=== PATIENT | female | born 1940 | race African-American/Black ===

== ENCOUNTER 2017-07-09 07:20 | Inpatient (IN) | payer MEDICARE, OTHER ==
[~2017-07-09] VITALS: Ht 172.7 cm; Wt 73.7 kg
[2017-07-09 07:25] VITALS: BP 179/85; PULSE 86; RESP 14; TEMP 97.6; O2SAT 96
[2017-07-09] MEDS ORDERED: ASPI325T PO (08:31)
[2017-07-09] MEDS ORDERED: IBUP-232 PO (08:31)
[2017-07-09] MEDS ORDERED: AMLO10TA2 PO (08:31)
[2017-07-09] MEDS ORDERED: DIGO0.12 PO (08:31)
[2017-07-09] MEDS ORDERED: GLUC15009 PO (08:31)
[2017-07-09] MEDS ORDERED: [UNRECOGNIZED DRUG - CODE] (08:31)
[2017-07-09] MEDS ORDERED: SODIUM CHLORIDE 0.9% FLUSH 10 ML FLUSH IVF PRN (09:00)
--- NOTE | 2017-07-09 09:20 | RADRPT ---
EXAM DATE/TIME: 07/09/2017 09:04 [facility] COMPARISON: No previous studies available for comparison. INDICATIONS : Right arm numbness since last night. RADIATION DOSE: 31.94 CTDIvol (mGy) MEDICAL HISTORY : Hypertension. SURGICAL HISTORY : None. ENCOUNTER: Initial ACUITY: 1 day PAIN SCALE: 0/10 LOCATION: Bilateral head TECHNIQUE: Multiple contiguous axial images were obtained of the head. Using automated exposure control and adj ustment of the mA and/or kV according to patient size, radiation dose was kept as low as reasonably a chievable to obtain optimal diagnostic quality images. DICOM format image data is available electro nically for review and comparison. FINDINGS: CEREBRUM: Ventricles are normal. There is mild periventricular white matter low attenuation. 4 mm low density i s present in the left thalamus. No evidence of midline shift, mass lesion, hemorrhage or acute infar ction. No extra-axial fluid collections are seen. POSTERIOR FOSSA: The cerebellum and brainstem demonstrate no acute finding. The 4th ventricle is midline. The cerebe llopontine angle is unremarkable. EXTRACRANIAL: The visualized portion of the orbits is intact. SKULL: The calvaria is intact. No evidence of skull fracture. CONCLUSION: 1. No acute intracranial abnormality is identified. 2. Chronic changes include mild periventricular white matter changes characteristic of chronic small vessel ischemic change and old lacunae in left thalamus. Rhett Harmon MD on July 09, 2017 at 9:16 Board Certified Radiologist. This report was verified electronically.
--- NOTE | 2017-07-09 09:24 | RADRPT ---
EXAM DATE/TIME: 07/09/2017 09:07 [facility] COMPARISON: No previous studies available for comparison. INDICATIONS : Right hand numbness. MEDICAL HISTORY : Hypertension. Irregular heart beat. SURGICAL HISTORY : None. ENCOUNTER: Initial ACUITY: 2 days PAIN SCORE: 0/10 LOCATION: chest FINDINGS: A single view of the chest demonstrates the lungs to be symmetrically aerated without evidence of mas s, infiltrate or effusion. The cardiomediastinal contours are unremarkable. Osseous structures are intact. CONCLUSION: No acute disease. Harris Rios MD on July 09, 2017 at 9:22 Board Certified Radiologist. This report was verified electronically.
[2017-07-09 09:42] VITALS: RESP 18; O2SAT 97
[2017-07-09 09:55] LABS: AUTOMATED NEUTROPHIL # 6.2 TH/MM3 (1.8-7.7); BASOPHIL % 0.4 % (0.0-2.0); EOSINOPHIL # 0.2 TH/MM3 (0-0.4); EOSINOPHIL % 2.3 % (0.0-4.0); HEMO FLAGS DIFF FINAL; LYMPH % 28.6 % (9.0-44.0); LYMPHOCYTE # 2.9 TH/MM3 (1.0-4.8); MEAN CELL VOLUME 92.4 FL (80.0-100.0); MEAN CORPUSCULAR HEMOGLOBIN 31.1 PG (27.0-34.0); MEAN CORPUSCULAR HGB CONC 33.7 % (32.0-36.0); MONO % 6.9 % (0.0-8.0); NEUT % 61.8 % (16.0-70.0); PLATELET COUNT 277 TH/MM3 (150-450); RED BLOOD COUNT 4.22 MIL/MM3 (4.00-5.30); RED CELL DISTRIBUTION WIDTH 14.3 % (11.6-17.2)
[2017-07-09 10:11] LABS: BACTERIA, URINE RARE /hpf; BLOOD, URINE NEG (NEG); GLUCOSE,URINE NEG (NEG); KETONE, URINE NEG (NEG); NITRITE,URINE NEG (NEG); PH, URINE 6.5 (5.0-8.5)
[2017-07-09 10:17] LABS: ANION GAP 10 MEQ/L (5-15); BICARBONATE 24.3 MEQ/L (21.0-32.0); BLOOD UREA NITROGEN 21 MG/DL (7-18); CHLORIDE 107 MEQ/L (98-107); COMMENT (UR) CATH-CULTURE IND; CULTURE IF INDICATED CATH CULTURE IND; GLOMERULAR FILTRATION RATE 98 ML/MIN (>89); SODIUM (NA) 141 MEQ/L (136-145); URINE COLOR STRAW (YELLW/STRAW)
[2017-07-09 10:23] LABS: POTASSIUM 3.8 MEQ/L (3.5-5.1)
[2017-07-09] MEDS ORDERED: NITROFURANTOIN MONOHYD MACROCR 100 MG CAP PO ONE (10:30)
--- NOTE | 2017-07-09 10:32 | PD ---
HPI Chief Complaint: Neuro Symptoms/ Deficits Time Seen by Provider: 08:40 Travel History International Travel<30 days: No Contact w/Intl Traveler<30days: No Traveled to known affect area: No History of Present Illness HPI 77-year-old female came to the emergency room since she has weakness of her right upper extremity. Patient says that she noticed this at 10 PM last night. When she got out of work and was driving her car she noticed that her right arm was weak. She was trying to compensate with her left arm. When she tried to get out of the car she could not hold the car keys in her hand. It slipped and fell. She had to retrieve it with her left arm again. She did not call for any help or asked anybody in the household to bring her to the emergency room sheet since she did not want to bother anybody. This morning when she woke up she noticed that the weakness still persisted and may have been a little worse than last night. No history of speech problem. No history of weakness of her legs since last night. Vital signs are stable. She is awake and answering questions appropriately. Patient has not had these symptoms in the past. She was concerned if she is having a stroke. Patient is on digoxin for atrial fibrillation. She is not on any blood thinners. [facility] Past Medical History Narrative Medical List of her past medical, surgical, social and family history is reviewed from the nursing note. Asthma: No Autoimmune Disease: No Heart Rhythm Problems: Yes COPD: No Diabetes: No Endocrine: No Hypertension: Yes Respiratory: No Sleep Apnea: No Thyroid Disease: No Tetanus Vaccination: > 5 Years ?: Not Social History Alcohol Use: No Tobacco Use: No Substance Use: No Allergies-Medications (Allergen,Severity, Reaction): Coded Allergies: No Known Allergies (Verified Allergy, Severe, NO REACTION, 03/08/05) Comments No known drug allergies. Reported Meds & Prescriptions Reported Meds & Active Scripts Active Reported Aspirin 325 Mg Tab 325 Mg PO DAILY Biotin 10,000 Mcg Tab.rapdis Digoxin 0.125 Mg Tab 0.125 Mg PO DAILY Amlodipine (Amlodipine Besylate) 10 Mg Tab 10 Mg PO DAILY Ibuprofen 600 Mg Tab 600 Mg PO Q8H PRN Glucosamine 1,500 Mg Tab 1,500 Mg PO DAILY Narrative Medication List of her home medications reviewed from the nursing note. Review of Systems Except as stated in HPI: all other systems reviewed are Neg Neurologic: Positive: Weakness, Focal Abnormalities Physical Exam Narrative GENERAL: Awake, alert, no obvious distress SKIN: Focused skin assessment warm/dry. HEAD: Atraumatic. Normocephalic. EYES: Pupils equal and round. No scleral icterus. No injection or drainage. ENT: No nasal bleeding or discharge. Mucous membranes pink and moist. NECK: Trachea midline. No JVD. CARDIOVASCULAR: Regular rate and rhythm. No murmur appreciated. RESPIRATORY: No accessory muscle use. Clear to auscultation. Breath sounds equal bilaterally. GASTROINTESTINAL: Abdomen soft, non-tender, nondistended. Hepatic and splenic margins not palpable. MUSCULOSKELETAL: No obvious deformities. No clubbing. No cyanosis. No edema. NEUROLOGICAL: Awake and alert. No obvious cranial nerve deficits. Motor grossly within normal limits. Normal speech. Strength of right upper extremity is 3 out of 5. NIH stroke score of 1 PSYCHIATRIC: Appropriate mood and affect; insight and judgment normal. Data Data Last Documented VS Vital Signs Date Time Temp Pulse Resp B/P (MAP) Pulse Ox O2 Delivery O2 Flow Rate FiO2 07/09/17 09:42 18 97 Room Air 07/09/17 07:57 84 07/09/17 07:25 97.6 Orders Orders Electrocardiogram (07/09/17 08:46) Prothrombin Time / Inr (Pt) (07/09/17 08:46) Complete Blood Count With Diff (07/09/17 08:46) Basic Metabolic Panel (Bmp) (07/09/17 08:46) Troponin I (07/09/17 08:46) Urinalysis - C+S If Indicated (07/09/17 08:46) Ct Brain W/O Iv Contrast(Rout) (07/09/17 08:46) Chest, Single Ap (07/09/17 08:46) Ecg Monitoring (07/09/17 08:46) Iv Access Insert/Monitor (07/09/17 08:46) Oximetry (07/09/17 08:46) Sodium Chloride 0.9% Flush (Ns Flush) (07/09/17 09:00) Digoxin (07/09/17 08:46) Mra Brain W/O Contrast (Cow) (07/09/17 ) Mri Brain W/O Contrast (07/09/17 ) Urine Culture (07/09/17 09:17) Nitrofurantoin Monohyd Macrocr (Macrobid (07/09/17 10:30) Labs Laboratory Tests Test 07/09/17 09:17 White Blood Count 10.0 TH/MM3 Red Blood Count 4.22 MIL/MM3 Hemoglobin 13.1 GM/DL Hematocrit 39.0 % Mean Corpuscular Volume 92.4 FL Mean Corpuscular Hemoglobin 31.1 PG Mean Corpuscular Hemoglobin Concent 33.7 % Red Cell Distribution Width 14.3 % Platelet Count 277 TH/MM3 Mean Platelet Volume 9.6 FL Neutrophils (%) (Auto) 61.8 % Lymphocytes (%) (Auto) 28.6 % Monocytes (%) (Auto) 6.9 % Eosinophils (%) (Auto) 2.3 % Basophils (%) (Auto) 0.4 % Neutrophils # (Auto) 6.2 TH/MM3 Lymphocytes # (Auto) 2.9 TH/MM3 Monocytes # (Auto) 0.7 TH/MM3 Eosinophils # (Auto) 0.2 TH/MM3 Basophils # (Auto) 0.0 TH/MM3 CBC Comment DIFF FINAL Differential Comment Urine Color STRAW Urine Turbidity CLEAR Urine pH 6.5 Urine Specific [place] 1.003 Urine Protein NEG mg/dL Urine Glucose (UA) NEG mg/dL Urine Ketones NEG mg/dL Urine Occult Blood NEG Urine Nitrite NEG Urine Bilirubin NEG Urine Urobilinogen LESS THAN 2.0 MG/DL Urine Leukocyte Esterase NEG Urine RBC LESS THAN 1 /hpf Urine Bacteria RARE /hpf Microscopic Urinalysis Comment CATH-CULTURE IND Blood Urea Nitrogen 21 MG/DL Creatinine 0.70 MG/DL Random Glucose 91 MG/DL Calcium Level 9.5 MG/DL Sodium Level 141 MEQ/L Potassium Level 3.8 MEQ/L Chloride Level 107 MEQ/L Carbon Dioxide Level 24.3 MEQ/L Anion Gap 10 MEQ/L Estimat Glomerular Filtration Rate 98 ML/MIN Troponin I LESS THAN 0.02 NG/ML Digoxin Level 0.5 NG/ML MDM Medical Decision Making Medical Screen Exam Complete: Yes Emergency Medical Condition: Yes Medical Record Reviewed: Yes Interpretation(s) Twelve-lead EKG is reviewed by me. Normal sinus rhythm, left axis deviation, poor R-wave progression, nonspecific ST-T wave changes. Heart rate of 78 bpm. Differential Diagnosis CVA, cervical radiculopathy, muscular weakness Narrative Course 10:31 AM blood test results of back and within acceptable limit. CT scan does not show any bleed. I've ordered MRI of her brain. I would like to admit this patient. I'll give her one aspirin. Awaiting for hospitalist to call back. 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
[2017-07-09 10:33] LABS: DIGOXIN 0.5 NG/ML (0.8-2.0)
[2017-07-09] MEDS ORDERED: SODIUM CHLOR 0.9% 1000 ML INJ 1,000 ML IV ONE (10:45)
[2017-07-09] MEDS ORDERED: ASPIRIN 325 MG TAB PO ONE (11:30)
--- NOTE | 2017-07-09 11:51 | RADRPT ---
EXAM DATE/TIME: 07/09/2017 11:14 [facility] COMPARISON: CT BRAIN W/O CONTRAST, July 09, 2017, 9:04. INDICATIONS : Right sided weakness. MEDICAL HISTORY : Hypertension. SURGICAL HISTORY : Hysterectomy. Knee replacement. ENCOUNTER: Initial ACUITY: 2 day PAIN SCORE: 0/10 LOCATION: Head TECHNIQUE: Multiplanar, multisequence MRI of the brain was performed without contrast. FINDINGS: CEREBRUM: There is mild generalized atrophy. Ventricles are normal. No evidence of midline shift, mass lesion, or hemorrhage. No extraaxial fluid collections are seen. The pituitary gland and suprasellar ciste rn are normal in configuration. WHITE MATTER: There is mild mild periventricular white matter signal change. There a few punctate areas of low sign al change in the left basal ganglia and left centrum semiovale. POSTERIOR FOSSA: The cerebellum and brainstem demonstrate no acute finding. There is an old lacune in the left cerebel lum. The 4th ventricle is midline. The cerebellopontine angle is unremarkable. The cerebellar tonsi ls are normal in position. DIFFUSION IMAGING: There is a single small focal area of restricted diffusion in the left parietal high convexity that a ppears to be adjacent to the central sulcus. There is a minimal flair signal change in this area. EXTRACRANIAL: The visualized portions of the orbits and paranasal sinuses are unremarkable. CONCLUSION: 1. Small focal area of recent ischemia in the left parietal high convexity. 2. Chronic changes include mild atrophy and periventricular white matter changes characteristic of ch ronic microvascular ischemia. Rhett Harmon MD on July 09, 2017 at 11:45 Board Certified Radiologist. This report was verified electronically.
[2017-07-09] MEDS ORDERED: SODIUM CHLORIDE 0.9% FLUSH 5 ML FLUSH IV FLUSH PRN (12:00)
[2017-07-09] MEDS ORDERED: ENALAPRILAT 1.25 MG/ML VIAL IV PUSH PRN (12:00)
--- NOTE | 2017-07-09 12:03 | RADRPT ---
EXAM DATE/TIME: 07/09/2017 11:14 [facility] COMPARISON: CT BRAIN W/O CONTRAST, July 09, 2017, 9:04. MRI BRAIN W/O CONTRAST, July 09, 2017, 11:14. INDICATIONS : Right sided weakness. MEDICAL HISTORY : Hypertension. SURGICAL HISTORY : Hysterectomy. Knee replacement. ENCOUNTER: Initial ACUITY: 2 day PAIN SCORE: 0/10 LOCATION: head Please note a normal MRA of the brain does not entirely exclude the possibility of a small aneurysm, nor the possibility of distal intracranial vessel disease. TECHNIQUE: 3D time of flight MRA was performed. Source images, multiplanar STS MIP, and 3D volume MIP reconstru ctions were reviewed. FINDINGS: There is excellent visualization of the major intracranial arteries out to the second-order branch ve ssels. Diffuse atherosclerotic plaque observed. The most significant stenosis involves the M1 segment on the right with a high grade stenosis identified. There is mild luminal narrowing involving the P1 segments bilaterally as well as the basilar artery near its bifurcation into the P1 segments. Athero sclerotic plaque within the intracavernous segments of the ICAs without luminal narrowing. There is n o evidence for aneurysm or vascular malformation. CONCLUSION: 1. 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 Justin Jauregui Jr., MD on July 09, 2017 at 11:58 Board Certified Radiologist. This report was verified electronically.
[2017-07-09 12:14] LABS: PROTHROMBIN TIME - PATIENT 10.6 SEC (9.8-11.6)
[2017-07-09] MEDS ORDERED: ENOXAPARIN SODIUM 40 MG/0.4 ML SYRINGE SQ SCH (13:00)
[2017-07-09] MEDS ORDERED: SODIUM CHLOR 0.9% 1000 ML INJ 1,000 ML IV SCH (13:00)
--- NOTE | 2017-07-09 13:00 | HHI.HP ---
HPI Service [facility] Hospitalists Primary Care Physician Michi Austin M.D. Admission Diagnosis CVA, Monoplegia Diagnoses: Chief Complaint: Right upper extremity weakness Travel History International Travel<30 Days: No Contact w/Intl Traveler <30 Da: No Traveled to Known Affected Are: No History of Present Illness Written by Daisha Nichols, acting as scribe for Dr. Bowie on 07/09/17 at 12: 59. This 77-year-old female with past medical history significant for hypertension and atrial fibrillation who presents to [facility] ED with complaints of right upper extremity weakness 2 days. She states she was driving home from work around 10 PM last night when she developed sudden onset of right upper extremity weakness and had difficulty holding onto objects with the right hand. Patient states when she woke up this morning she continued to have the weakness in the right upper extremity at that time decided to come into the emergency department for evaluation treatment. Patient takes digoxin daily for atrial fibrillation and states she is compliant with her medications including 325mg aspirin daily. She's never been on blood thinners. In the ED, CT of the head was obtained which showed no acute intracranial abnormality. MRI of the brain showed small focal area of recent ischemia the left parietal high convexity. She does admit that she has a bit more movement in the right hand than she did last night. She denies any complaints of pain in the right upper extremity. She denies any weakness in the lower extremities. Review of Systems Except as stated in HPI: all other systems reviewed are Neg Past Family Social History Past Medical History Hypertension Atrial fibrillation Past Surgical History Hysterectomy Left total knee replacement Reported Medications Current Medications Medications (Trade) Dose Ordered Sig/Sukh Route Start Time Stop Time Status Last Admin (NS Flush) 2 ml UNSCH PRN IVF 07/09/17 09:00 (Norvasc) 10 mg DAILY PO 07/10/17 09:00 (Aspirin) 325 mg DAILY PO 07/10/17 09:00 (Lanoxin) 0.125 mg DAILY PO 07/10/17 09:00 (NS Flush) 2 ml BID IV FLUSH 07/09/17 21:00 (NS Flush) 2 ml UNSCH PRN IV FLUSH 07/09/17 12:00 Sodium Chloride 1,000 ml @ 70 mls/hr [id number] IV 07/09/17 13:00 (Vasotec Inj) 1.25 mg Q4H PRN IV PUSH 07/09/17 12:00 (Lovenox Inj) 40 mg Q24H SQ 07/09/17 13:00 Allergies: Coded Allergies: No Known Allergies (Verified Allergy, Severe, NO REACTION, 03/08/05) Active Ordered Medications Aspirin 325 Mg Tab 325 Mg PO DAILY Biotin 10,000 Mcg Tab.rapdis Digoxin 0.125 Mg Tab 0.125 Mg PO DAILY Amlodipine (Amlodipine Besylate) 10 Mg Tab 10 Mg PO DAILY Ibuprofen 600 Mg Tab 600 Mg PO Q8H PRN Glucosamine 1,500 Mg Tab 1,500 Mg PO DAILY Family History Patient reports family medical history significant for hypertension, CVA and kidney disease. Social History Patient denies any tobacco use and has been a lifelong nonsmoker. She denies any alcohol consumption or illicit drug use. She currently works at [employer]. Physical Exam Vital Signs Vital Signs Date Time Temp Pulse Resp B/P (MAP) Pulse Ox O2 Delivery O2 Flow Rate FiO2 07/09/17 09:42 18 97 Room Air 07/09/17 07:57 84 07/09/17 07:25 97.6 86 14 179/85 (116) 96 Physical Exam GENERAL: This is a well-nourished, well-developed AAF patient, in no apparent distress. Awake and alert. No facial asymmetry appreciated. SKIN: No rashes, ecchymoses or lesions. Cool and dry. HEAD: Atraumatic. Normocephalic. No temporal or scalp tenderness. EYES: Pupils equal round and reactive. Extraocular motions intact. No scleral icterus. No injection or drainage. ENT: Nose without bleeding, purulent drainage or septal hematoma. Throat without erythema, tonsillar hypertrophy or exudate. Uvula midline. Airway patent. NECK: Trachea midline. No JVD or lymphadenopathy. Supple, nontender, no meningeal signs. CARDIOVASCULAR: Regular rate and rhythm without murmurs, gallops, or rubs. RESPIRATORY: Clear to auscultation. Breath sounds equal bilaterally. No wheezes , rales, or rhonchi. GASTROINTESTINAL: Abdomen soft, non-tender, nondistended. No hepato-splenomegaly , or palpable masses. No guarding. MUSCULOSKELETAL: Extremities without clubbing, cyanosis, or edema. No joint tenderness, effusion, or edema noted. No calf tenderness. NEUROLOGICAL: Awake and alert. Able to move all extremities. 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 Sensory function grossly intact. Left upper extremity and bilateral lower extremities with intact motor and sensory functions. Normal speech. Laboratory Laboratory Tests Test 07/09/17 09:17 07/09/17 11:44 White Blood Count 10.0 Red Blood Count 4.22 Hemoglobin 13.1 Hematocrit 39.0 Mean Corpuscular Volume 92.4 Mean Corpuscular Hemoglobin 31.1 Mean Corpuscular Hemoglobin Concent 33.7 Red Cell Distribution Width 14.3 Platelet Count 277 Mean Platelet Volume 9.6 Neutrophils (%) (Auto) 61.8 Lymphocytes (%) (Auto) 28.6 Monocytes (%) (Auto) 6.9 Eosinophils (%) (Auto) 2.3 Basophils (%) (Auto) 0.4 Neutrophils # (Auto) 6.2 Lymphocytes # (Auto) 2.9 Monocytes # (Auto) 0.7 Eosinophils # (Auto) 0.2 Basophils # (Auto) 0.0 CBC Comment DIFF FINAL Differential Comment Urine Color STRAW Urine Turbidity CLEAR Urine pH 6.5 Urine Specific [place] 1.003 Urine Protein NEG Urine Glucose (UA) NEG Urine Ketones NEG Urine Occult Blood NEG Urine Nitrite NEG Urine Bilirubin NEG Urine Urobilinogen LESS THAN 2.0 Urine Leukocyte Esterase NEG Urine RBC LESS THAN 1 Urine Bacteria RARE Microscopic Urinalysis Comment CATH-CULTURE IND Blood Urea Nitrogen 21 Creatinine 0.70 Random Glucose 91 Calcium Level 9.5 Sodium Level 141 Potassium Level 3.8 Chloride Level 107 Carbon Dioxide Level 24.3 Anion Gap 10 Estimat Glomerular Filtration Rate 98 Troponin I LESS THAN 0.02 Digoxin Level 0.5 Prothrombin Time 10.6 Prothromb Time International Ratio 1.0 Date/Time Source Procedure Growth Status 07/09/17 09:17 Urine Catheterized Urine Urine Culture Pending Received Result Diagram: 07/09/1791607/09/17916 Imaging Last Impressions Head CT 07/09/17 0846 Signed Impressions: Service Date/Time: Sunday, July 09, 2017 09:04 - CONCLUSION: 1. No acute intracranial abnormality is identified. 2. Chronic changes include mild periventricular white matter changes characteristic of chronic small vessel ischemic change and old lacunae in left thalamus. Rhett Harmon MD Chest X-Ray 07/09/17 0846 Signed Impressions: Service Date/Time: Sunday, July 09, 2017 09:07 - CONCLUSION: No acute disease. Harris Rios MD Head Magnetic Resonance Angiography 07/09/17 0000 Signed Impressions: Service Date/Time: Sunday, July 09, 2017 11:14 - CONCLUSION: 1. 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 Justin Jauregui Jr., MD Brain MRI 07/09/17 0000 Signed Impressions: Service Date/Time: Sunday, July 09, 2017 11:14 - CONCLUSION: 1. Small focal area of recent ischemia in the left parietal high convexity. 2. Chronic changes include mild atrophy and periventricular white matter changes characteristic of chronic microvascular ischemia. MD Floyd Acuña VTE Risk Assessment Caprini VTE Risk Assessment: Mod/High Risk (score >= 2) Caprini Risk Assessment Model Point Value = 1 Point Value = 2 Point Value = 3 Point Value = 5 Age 41-60 Minor surgery BMI > 25 kg/m2 Swollen legs Varicose veins or History of unexplained or recurrent spontaneous Oral contraceptives or hormone replacement Sepsis (< 1 month) Serious lung disease, including pneumonia (< 1 month) Abnormal pulmonary function Acute myocardial infarction Congestive heart failure (< 1 month) History of inflammatory bowel disease Medical patient at bed rest Age 61-74 Arthroscopic surgery Major open surgery (> 45 min) Laparoscopic surgery (> 45 min) Malignancy Confined to bed (> 72 hours) Immobilizing plaster cast Central venous access Age >= 75 History of VTE Family history of VTE Factor V Leiden Prothrombin [id number] Lupus anticoagulant Anticardiolipin antibodies Elevated serum homocysteine Heparin-induced thrombocytopenia Other congenital or acquired thrombophilia Stroke (< 1 month) Elective arthroplasty Hip, pelvis, or leg fracture Acute spinal cord injury (< 1 month) Prophylaxis Regimen Total Risk Factor Score Risk Level Prophylaxis Regimen 0-1 Low Early ambulation 2 Moderate Order ONE of the following: *Sequential Compression Device (SCD) *Heparin 5000 units SQ BID 3-4 Higher Order ONE of the following medications: *Heparin 5000 units SQ TID *Enoxaparin/Lovenox 40 mg SQ daily (WT < 150 kg, CrCl > 30 mL/min) *Enoxaparin/Lovenox 30 mg SQ daily (WT < 150 kg, CrCl > 10-29 mL/min) *Enoxaparin/Lovenox 30 mg SQ BID (WT < 150 kg, CrCl > 30 mL/min) AND/OR *Sequential Compression Device (SCD) 5 or more Highest Order ONE of the following medications: *Heparin 5000 units SQ TID (Preferred with Epidurals) *Enoxaparin/Lovenox 40 mg SQ daily (WT < 150 kg, CrCl > 30 mL/min) *Enoxaparin/Lovenox 30 mg SQ daily (WT < 150 kg, CrCl > 10-29 mL/min) *Enoxaparin/Lovenox 30 mg SQ BID (WT < 150 kg, CrCl > 30 mL/min) AND *Sequential Compression Device (SCD) Assessment and Plan Assessment and Plan 77-year-old female with past medical history significant for hypertension and atrial fibrillation who presents to [facility] ED with complaints of right upper extremity weakness 2 days with MRI of the brain showed small focal area of recent ischemia the left parietal. Left sided ischemic CVA with RUE paresis - MRI of the brain personally reviewed shows a small focal area of recent ischemia in the left parietal high convexity as well as chronic white matter changes characteristic of microvascular ischemia. - Patient given aspirin in the ED. We'll continue aspirin 325mg daily. - Consult neurology for anticoagulant recommendations - Neuro checks every 4 hours - PT/OT eval/treatment - Ultrasound carotid arteries ordered - 2-D echocardiogram - Obtain a hemoglobin A1c and a lipid profile - Continuous cardiac monitoring - Consult Rehab medicine Hypertension - Resume patient's home dose of amlodipine 10 mg daily - monitor BP Atrial fibrillation - Rate controlled - Resume patient's home dose of digoxin 0.125 mg daily - Monitor DVT prophylaxis - Lovenox sq This note was transcribed by april [Daisha Nichols]. I, Dr. Keara Bowie personally performed the history, physical exam, and medical decision making; and confirmed the accuracy of the information in the transcribed note. Authenticated by Dr. Keara Bowie on 07/09/17 at 1305. Discussed Condition With Patient, ED physician Physician Certification 2 Midnight Certification Type: Admission for Inpatient Services Order for Inpatient Services The services are ordered in accordance with Medicare regulations or non- Medicare payer requirements, as applicable. In the case of services not specified as inpatient-only, they are appropriately provided as inpatient services in accordance with the 2-midnight benchmark. Estimated LOS (days): 3 3 days is the estimated time the patient will need to remain in the hospital, assuming treatment plan goals are met and no additional complications. Post-Hospital Plan: Not yet determined Daisha Nichols Jul 09, 2017 13:00 Keara Bowie MD Jul 09, 2017 14:51
[2017-07-09] MEDS ORDERED: CLOPIDOGREL 75 MG TAB PO SCH (13:58)
[2017-07-09] MEDS ORDERED: GADODIAMIDE PF 287 MG/ML 20 ML VIAL (for RAD MRI) IV PUSH ONE (14:14)
[2017-07-09] MEDS: SODIUM CHLOR 0.9% 1000 ML INJ 1,000 ML IV SCH (15:10)
--- NOTE | 2017-07-09 15:53 | RADRPT ---
EXAM DATE/TIME: 07/09/2017 13:55 [facility] COMPARISON: MRA BRAIN W/O CONTRAST, July 09, 2017, 11:14. INDICATIONS : Stroke. CONTRAST: 20 cc Omniscan (gadodiamide) IV MEDICAL HISTORY : Hypertension. SURGICAL HISTORY : Hysterectomy. Knee replacement. ENCOUNTER: Initial ACUITY: 2 day PAIN SCORE: 0/10 LOCATION: neck Percent stenosis is calculated using the diameter of the stenotic region over the diameter of the nor mal distal internal carotid artery. TECHNIQUE: Bolus infused MRA of the extracranial circulation was performed using a neurovascular coil. Post pro cessing was performed including rotating subvolume maximum intensity projections of each carotid grace ry, rotating full volume maximum intensity projections of both carotid arteries, sagittal and coronal sliding thin slab reformations of each carotid artery, and left oblique sliding thin slab reformatio n through the aortic arch to include the origin of the arch branch vessels. FINDINGS: AORTIC ARCH: There is a three vessel origin of the great vessels from the aorta. No evidence of ostial narrowing. RIGHT CAROTID: The common carotid artery is intact. The carotid bulb has a normal configuration without ulceration or narrowing. The internal carotid artery lumen is smooth without stenosis. The external carotid ar jose manuel is intact. LEFT CAROTID: The common carotid artery is intact. The carotid bulb has a normal configuration without ulceration or narrowing. The internal carotid artery lumen is smooth without stenosis. The external carotid ar jose manuel is intact. VERTEBRALS: The vertebral arteries have a symmetric diameter. The origins of the vertebrals are not well visualiz ed. CONCLUSION: 1. No hemodynamically significant carotid artery stenosis identified. 2. The vertebral circulation appears patent. The vertebral origins are not well-visualized. Kaden Kim MD on July 09, 2017 at 15:50 Board Certified Radiologist. This report was verified electronically.
[2017-07-09 16:25] LABS: HEMOGLOBIN A1a 1.1 %; HEMOGLOBIN Ao 84.2 %; HEMOGLOBIN P3 4.1 %
[2017-07-09 16:27] VITALS: BP 176/81; PULSE 68; RESP 18; TEMP 97.2; O2SAT 95
[2017-07-09 20:00] VITALS: BP 151/79; PULSE 67; RESP 18; TEMP 98.2; O2SAT 97
[2017-07-09] MEDS: SODIUM CHLORIDE 0.9% FLUSH 5 ML FLUSH IV FLUSH SCH (21:00)
[2017-07-09] MEDS ORDERED: ENOXAPARIN SODIUM 30 MG/0.3 ML SYRINGE SQ SCH (21:00)
--- NOTE | 2017-07-09 21:41 | EKG ---
Date Performed: 07/09/2017 Time Performed: 08:55:08 PTAGE: 77 years EKG: Sinus rhythm WITH SINUS ARRHYTHMIA POSSIBLE LEFT ATRIAL ENLARGEMENT BORDERLINE ECG PREVIOUS TRACING : 04/30/2012 12.49 Compared to prior tracing no significant change DOCTOR: Rito Person Interpretating Date/Time 07/09/2017 21:40:17
--- NOTE | 2017-07-09 21:56 | MB ---
cc: LILLY MEJIA M.D. DATE OF CONSULTATION 07/09/2017 HISTORY A 77-year-old right-handed woman with a history of hypertension who was taking a baby aspirin a day. She usually sees Dr. Austin. She had been on digoxin although she did not know she ever had any atrial fibrillation. She was driving yesterday and had sudden onset of weakness of the right arm and it seemed to get a bit worse. The leg and face was not involved. No chest pain, although she used to have palpitations, none recently. She came in the ER. She has been taking a baby aspirin a day. Evidently she has been on digoxin. ALLERGIES NO KNOWN DRUG ALLERGIES. 1. She has been on aspirin 81. 2. Biotin. 3. Digoxin. 4. Amlodipine. 5. Ibuprofen. 6. Glucosamine. It states in the ER notes she has been on digoxin for A fib and reiterated in the primary care's note that she has a history of atrial fibrillation, although she herself never knew that. REVIEW OF SYSTEMS She denies any headache, diabetes, hypercholesterolemia, anemia, DC, CABG, stent angioplasty, Coumadin, renal, hepatic, pulmonary disease, thyroid disease, lupus, ulcer, cancer, seizure, prior stroke. SOCIAL HISTORY Not a smoker or a drinker. Lives alone. FAMILY HISTORY Positive for cancer. Negative for seizure. Positive for stroke. PHYSICAL EXAMINATION VITAL SIGNS: On exam afebrile, 60, 18, 176/81. Tele has been sinus rhythm. EKG today sinus rhythm, possible left atrial enlargement. NECK: There are no carotid bruits. HEART: Regular rhythm. I did not detect a murmur. NEUROLOGIC: Pupils are equal. Visual rodriguez are full. Extraocular intact without nystagmus. Face is symmetric with normal sensation. Tongue was midline. There is a positive right drift. She had normal strength in left upper and bilateral lower extremities. Right upper extremity triceps was about 4/5. Finger extensors 4-/5, inspector ball points 4-/5. Pinprick was intact throughout however. She is unsteady on [id number] on the right. Speech is fluent. She is not aphasic. LABORATORY DATA CBC is normal. ELOINA was 1:80 in the past. Digoxin 0.5. Basic metabolic profile normal. Troponin negative. Coags normal. IMAGING Chest x-ray negative. MRI of the brain shows small acute left parietal cortical to subcortical infarct. MRA [place] shows some right MCA disease, significant. MRA of the neck was normal. IMPRESSION Atrial fibrillation with a new stroke. I would stop the Lovenox, aspirin and Plavix and started her on Eliquis at 04:00 a.m. this morning it will be about 13 hours after her Lovenox dose. This will also cover her right MCA stenosis. An echocardiogram has been ordered. Check an LDL on her. Stop her aspirin and her Plavix. So we should above all things verify that she does in fact have a history of A fib, as we are starting her on the Eliquis due to that. Also check her LDL. And her echo is pending. MD DAY Santana/KK /5:36 PM /9:45 PM
[2017-07-10] VITALS: BP 142/71; PULSE 68; RESP 18; TEMP 98.7; O2SAT 98
[2017-07-10 04:00] VITALS: BP 124/69; PULSE 68; RESP 18; TEMP 98.7; O2SAT 98
[2017-07-10] MEDS: APIXABAN 5 MG TABLET PO SCH ×2 (04:06→16:47)
[2017-07-10] MEDS: SODIUM CHLOR 0.9% 1000 ML INJ 1,000 ML IV SCH ×2 (04:40→23:17)
[2017-07-10 07:48] LABS: HDL CHOLESTEROL 51.9 MG/DL (40.0-60.0)
--- NOTE | 2017-07-10 07:57 | HHI.PR ---
Objective Vital Signs Date Time Temp Pulse Resp B/P (MAP) Pulse Ox O2 Delivery O2 Flow Rate FiO2 07/10/17 04:00 98.7 68 18 124/69 (87) 98 07/10/17 00:00 98.7 68 18 142/71 (94) 98 07/09/17 20:00 98.2 67 18 151/79 (103) 97 07/09/17 16:27 97.2 68 18 176/81 (112) 95 07/09/17 15:35 07/09/17 09:42 18 97 Room Air 07/09/17 07:57 84 I/O 07/09/17 07/09/17 07/09/17 07/10/17 07/10/17 07/10/17 07:00 15:00 23:00 07:00 15:00 23:00 Intake Total 758 ml Balance 758 ml Intake Oral 240 ml IV Total 518 ml # Voids 3 2 # Bowel Movements 0 Result Diagram: 07/09/1791607/09/17916 Objective Remarks some r should er pain vff faxce sym rue a little better 4/5-4-/5 can make fist rle 4+ nl speech Assessment and Plan Assessment and Plan imp doing well afib hx? on eliquis ldl nl esr labs ok could go to rehab r mca stenosis asx Vasu Mercado MD Jul 10, 2017 07:56
[2017-07-10 08:00] VITALS: BP 141/69; PULSE 69; RESP 18; TEMP 98.4; O2SAT 98
[2017-07-10] MEDS: SODIUM CHLORIDE 0.9% FLUSH 5 ML FLUSH IV FLUSH SCH ×2 (09:00→21:00)
[2017-07-10] MEDS ORDERED: ASPIRIN 325 MG TAB PO SCH (09:00)
[2017-07-10] MEDS: DIGOXIN 0.125 MG TAB PO SCH (09:30)
[2017-07-10] MEDS ORDERED: PNEUMOCOCCAL POLYVALENT INJ 25 MCG/0.5 ML SYR IM ONE (10:00)
[2017-07-10 12:00] VITALS: BP_SYST 128; BP_SYST 135; BP_DIAS 59; BP_DIAS 73; PULSE 75; PULSE 85; RESP 18; RESP 20; TEMP 98.2; TEMP 98.6; O2SAT 96; O2SAT 98
--- NOTE | 2017-07-10 14:49 | ECHRPT ---
Indication: CVA/TIA CONCLUSIONS Normal left ventricular size. Mild concentric left ventricular hypertrophy. The left ventricular systolic function is hyperdynamic with an estimated ejection fraction in the ra nge of 65- 70%. No mitral valve regurgitation. There is trace tricuspid valve regurgitation. The estimated pulmonary arterial pressure is 35.8 mmHg. Trivial pulmonary valve regurgitation. There is no pericardial effusion. BP: 179 / 85 HR: Rhythm: Sinus MEASUREMENTS (Male / Female) Normal Values Technical Quality:Fair 2D ECHO LV Diastolic Diameter PLAX 3.9 cm 4.2 - 5.9 / 3.9 - 5.3 cm LV Systolic Diameter PLAX 2.5 cm IVS Diastolic Thickness 1.0 cm 0.6 - 1.0 / 0.6 - 0.9 cm LVPW Diastolic Thickness 1.0 cm 0.6 - 1.0 / 0.6 - 0.9 cm LV Relative Wall Thickness 0.5 LVOT Diameter 2.2 cm Aortic Root Diameter 3.2 cm LA Systolic Diameter LX 1.9 cm 3.0 - 4.0 / 2.7 - 3.8 cm M-MODE AV Cusp Separation MM 2.2 cm DOPPLER AV Peak Velocity 149.0 cm/s AV Peak Gradient 8.9 mmHg AV Mean Gradient 4.0 mmHg AV Velocity Time Integral 26.7 cm LVOT Peak Velocity 105.0 cm/s LVOT Peak Gradient 4.4 mmHg LVOT Velocity Time Integral 21.7 cm AV Area Cont Eq vti 3.1 cm AV Area Cont Eq pk 2.7 cm Mitral E Point Velocity 84.4 cm/s Mitral A Point Velocity 82.4 cm/s Mitral E to A Ratio 1.0 LV E' Lateral Velocity 8.0 cm/s Mitral E to LV E' Lateral Ratio 10.6 LV E' Septal Velocity 6.8 cm/s Mitral E to LV E' Septal Ratio 12.4 TR Peak Velocity 254.0 cm/s TR Peak Gradient 25.8 mmHg Right Atrial Pressure 10.0 mmHg Pulmonary Artery Systolic Pressu 35.8 mmHg Right Ventricular Systolic Press 35.8 mmHg PV Peak Velocity 84.2 cm/s PV Peak Gradient 2.8 mmHg FINDINGS LEFT VENTRICLE Normal left ventricular size. Mild concentric left ventricular hypertrophy. The left ventricular systolic function is hyperdynamic with an estimated ejection fraction in the ra nge of 65- 70%. RIGHT VENTRICLE Normal right ventricular size and systolic function. LEFT ATRIUM The left atrial size is normal. RIGHT ATRIUM The right atrial size is normal. AORTA The aortic root and proximal ascending aorta are normal in size on limited imaging. MITRAL VALVE Structurally normal mitral valve. No mitral valve regurgitation. AORTIC VALVE Trileaflet aortic valve. No aortic valve stenosis or regurgitation. TRICUSPID VALVE There is trace tricuspid valve regurgitation. The estimated pulmonary arterial pressure is 35.8 mmHg. PULMONARY VALVE Trivial pulmonary valve regurgitation. VESSELS The inferior vena cava is normal in size. PERICARDIUM There is no pericardial effusion. Jose Alfredo Archer MD (Electronically Signed) Final Date:10 July 2017 14:48
--- NOTE | 2017-07-10 15:14 | HHI.PR ---
Subjective Remarks Patient reports persistent right hand weakness. She also complained of some right shoulder discomfort for which she normally takes Motrin at home. Objective Vitals Vital Signs Date Time Temp Pulse Resp B/P (MAP) Pulse Ox O2 Delivery O2 Flow Rate FiO2 07/10/17 12:00 98.6 85 20 135/73 (93) 98 07/10/17 12:00 98.2 75 18 128/59 (82) 96 07/10/17 08:00 98.4 69 18 141/69 (93) 98 07/10/17 04:00 98.7 68 18 124/69 (87) 98 07/10/17 00:00 98.7 68 18 142/71 (94) 98 07/09/17 20:00 98.2 67 18 151/79 (103) 97 07/09/17 16:27 97.2 68 18 176/81 (112) 95 07/09/17 15:35 I/O 07/09/17 07/09/17 07/09/17 07/10/17 07/10/17 07/10/17 07:00 15:00 23:00 07:00 15:00 23:00 Intake Total 758 ml Balance 758 ml Intake Oral 240 ml IV Total 518 ml # Voids 3 2 # Bowel Movements 0 Result Diagram: 07/09/1791607/09/17916 Imaging Last Impressions Head CT 07/09/17845 Signed Impressions: Service Date/Time: Sunday, July 09, 2017 09:04 - CONCLUSION: 1. No acute intracranial abnormality is identified. 2. Chronic changes include mild periventricular white matter changes characteristic of chronic small vessel ischemic change and old lacunae in left thalamus. Rhett Harmon MD Chest X-Ray 07/09/17845 Signed Impressions: Service Date/Time: Sunday, July 09, 2017 09:07 - CONCLUSION: No acute disease. Harris Rios MD Neck Magnetic Resonance Angiography 07/09/17 Signed Impressions: Service Date/Time: Sunday, July 09, 2017 13:55 - CONCLUSION: 1. No hemodynamically significant carotid artery stenosis identified. 2. The vertebral circulation appears patent. The vertebral origins are not well-visualized. Kaden Kim MD Head Magnetic Resonance Angiography 07/09/17 0000 Signed Impressions: Service Date/Time: Sunday, July 09, 2017 11:14 - CONCLUSION: 1. 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 Justin Jauregui Jr., MD Brain MRI 07/09/17 0000 Signed Impressions: Service Date/Time: Sunday, July 09, 2017 11:14 - CONCLUSION: 1. Small focal area of recent ischemia in the left parietal high convexity. 2. Chronic changes include mild atrophy and periventricular white matter changes characteristic of chronic microvascular ischemia. Rhett Harmon MD Objective Remarks GENERAL: No acute distress. CARDIOVASCULAR: Regular rate and rhythm. RESPIRATORY: No accessory muscle use. Clear to auscultation. Breath sounds equal bilaterally. GASTROINTESTINAL: Abdomen soft, non-tender, nondistended. Hepatic and splenic margins not palpable. MUSCULOSKELETAL: Extremities without clubbing, cyanosis, or edema. No obvious deformities. NEUROLOGICAL: Awake and alert. Right arm/hand 4/5. Rest of extremities normal. PSYCHIATRIC: Appropriate mood and affect; insight and judgment normal. A/P Assessment and Plan 77-year-old female with past medical history significant for hypertension and atrial fibrillation who presents to [facility] ED with complaints of right upper extremity weakness 2 days with MRI of the brain showed small focal area of recent ischemia the left parietal. Left sided ischemic CVA with RUE paresis - Neurology following. On Eliquis per Neurology Hypertension - Resume patient's home dose of amlodipine 10 mg daily - monitor BP Atrial fibrillation: Patient reports a history of Afib. No afib documented here. May have paroxysmal afib - Rate controlled - Resume patient's home dose of digoxin 0.125 mg daily - On Eliquis as above DVT prophylaxis - Eliquis Discharge Planning Plan to DC to SNF tomorrow Keara Bowie MD Jul 10, 2017 15:14
[2017-07-10 16:00] VITALS: BP 122/69; PULSE 81; RESP 18; TEMP 97.4; O2SAT 98
[2017-07-10] MEDS: ACETAMINOPHEN 325 MG TAB PO PRN (18:02)
[2017-07-10 20:00] VITALS: BP 132/70; PULSE 72; RESP 18; TEMP 97.9; O2SAT 100
[2017-07-11] VITALS (7 sets, daily range): BP systolic 130–143; BP diastolic 72–79; PULSE 62–87; RESP 18–20; TEMP 97.1–98.3; O2SAT 96–100
[2017-07-11] MEDS: APIXABAN 5 MG TABLET PO SCH ×2 (03:42→16:09)
[2017-07-11] MEDS: ACETAMINOPHEN 325 MG TAB PO PRN ×3 (03:42→16:08)
--- NOTE | 2017-07-11 07:23 | HHI.PR ---
Subjective Remarks severe r shoulder and neck pain never had b4 like this Objective Vital Signs Date Time Temp Pulse Resp B/P (MAP) Pulse Ox O2 Delivery O2 Flow Rate FiO2 07/11/17 04:00 97.8 62 18 134/74 (94) 100 07/11/17 01:02 87 07/11/17 00:00 98.3 66 18 137/79 (98) 100 07/10/17 20:00 97.9 72 18 132/70 (90) 100 07/10/17 16:00 97.4 81 18 122/69 (86) 98 07/10/17 12:00 98.6 85 20 135/73 (93) 98 07/10/17 12:00 98.2 75 18 128/59 (82) 96 07/10/17 08:00 98.4 69 18 141/69 (93) 98 I/O 07/10/17 07/10/17 07/10/17 07/11/17 07/11/17 07/11/17 07:00 15:00 23:00 07:00 15:00 23:00 Intake Total 226 ml Balance 226 ml IV Total 226 ml # Voids 2 3 1 2 # Bowel Movements 0 0 0 0 Result Diagram: 07/09/1791607/09/17916 Objective Remarks vff face sym rue no change r 4/5-4-/5 can make fist rle 4+ nl speech Assessment and Plan Assessment and Plan imp doing well afib hx? on eliquis ldl nl esr labs ok could go to rehab if mri c spine and shoulder ok with this pain r mca stenosis asx Vasu Mercado MD Jul 11, 2017 07:23
[2017-07-11] MEDS ORDERED: APIX5TAB PO (09:13)
--- NOTE | 2017-07-11 09:13 | HHI.DS ---
Discharge Summary Admission Date Jul 09, 2017 at 11:21 Discharge Date: Jul 11, 2017 Admitting Diagnosis CVA, Monoplegia (1) CVA (cerebral vascular accident) ICD Code: I63.9 - Cerebral infarction, unspecified Status: Acute (2) HTN (hypertension) ICD Code: I10 - Essential (primary) hypertension Status: Chronic (3) Afib ICD Code: I48.91 - Unspecified atrial fibrillation Status: Chronic (4) Right hand weakness ICD Code: R29.898 - Other symptoms and signs involving the musculoskeletal system Status: Acute Procedures None Brief History - From Admission This 77-year-old female with past medical history significant for hypertension and atrial fibrillation who presents to [facility] ED with complaints of right upper extremity weakness 2 days. She states she was driving home from work around 10 PM last night when she developed sudden onset of right upper extremity weakness and had difficulty holding onto objects with the right hand. Patient states when she woke up this morning she continued to have the weakness in the right upper extremity at that time decided to come into the emergency department for evaluation treatment. Patient takes digoxin daily for atrial fibrillation and states she is compliant with her medications including 325mg aspirin daily. She's never been on blood thinners. In the ED, CT of the head was obtained which showed no acute intracranial abnormality. MRI of the brain showed small focal area of recent ischemia the left parietal high convexity. She does admit that she has a bit more movement in the right hand than she did last night. She denies any complaints of pain in the right upper extremity. She denies any weakness in the lower extremities. CBC/BMP: 07/09/1717 07/09/17916 Significant Findings Laboratory Tests Test 07/09/17 09:17 07/09/17 11:44 07/09/17 21:51 07/10/17 06:37 Urine Bacteria RARE /hpf (NONE) Blood Urea Nitrogen 21 MG/DL (7-18) Troponin I LESS THAN 0.02 NG/ML Digoxin Level 0.5 NG/ML (0.8-2.0) Imaging Last Impressions Shoulder MRI 10/18/17 0000 Signed Impressions: Service Date/Time: Tuesday, July 11, 2017 08:51 - CONCLUSION: Chronic rotator cuff tear, probably full thickness without retraction associated with acromial arch impingement and degenerative changes. Degenerative changes superior labrum superior labral tear. Rusty Kim MD FACR Cervical Spine MRI 07/11/17 Signed Impressions: Service Date/Time: Tuesday, July 11, 2017 08:51 - CONCLUSION: Very minimal uncinate ridging at C4-C5 and C3-C4. I don't see an etiology for the patient's right sided radiculopathy. Rusty Kim MD FACR Head CT 07/09/1746 Signed Impressions: Service Date/Time: Sunday, July 09, 2017 09:04 - CONCLUSION: 1. No acute intracranial abnormality is identified. 2. Chronic changes include mild periventricular white matter changes characteristic of chronic small vessel ischemic change and old lacunae in left thalamus. Rhett Harmon MD Chest X-Ray 07/09/17845 Signed Impressions: Service Date/Time: Sunday, July 09, 2017 09:07 - CONCLUSION: No acute disease. Harris Rios MD Neck Magnetic Resonance Angiography 07/09/17 Signed Impressions: Service Date/Time: Sunday, July 09, 2017 13:55 - CONCLUSION: 1. No hemodynamically significant carotid artery stenosis identified. 2. The vertebral circulation appears patent. The vertebral origins are not well-visualized. Kaden Kim MD Head Magnetic Resonance Angiography 07/09/17 Signed Impressions: Service Date/Time: Sunday, July 09, 2017 11:14 - CONCLUSION: 1. 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 Justin Jauregui Jr., MD Brain MRI 07/09/17 Signed Impressions: Service Date/Time: Sunday, July 09, 2017 11:14 - CONCLUSION: 1. Small focal area of recent ischemia in the left parietal high convexity. 2. Chronic changes include mild atrophy and periventricular white matter changes characteristic of chronic microvascular ischemia. Rhett Harmon MD PE at Discharge GENERAL: No acute distress. CARDIOVASCULAR: Regular rate and rhythm. RESPIRATORY: No accessory muscle use. Clear to auscultation. Breath sounds equal bilaterally. GASTROINTESTINAL: Abdomen soft, non-tender, nondistended. Hepatic and splenic margins not palpable. MUSCULOSKELETAL: Extremities without clubbing, cyanosis, or edema. No obvious deformities. NEUROLOGICAL: Awake and alert. Right arm/hand 4/5. Rest of extremities normal. PSYCHIATRIC: Appropriate mood and affect; insight and judgment normal. Pt update on day of discharge Patient reports she is feeling better. She is moving the right and better, attempting to eat with it. Hospital Course 77-year-old female with past medical history significant for hypertension and atrial fibrillation who presents to [facility] ED with complaints of right upper extremity weakness 2 days with MRI of the brain showed small focal area of recent ischemia the left parietal. 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 Given the reported history of atrial fibrillation, she was started on liquids. Her symptoms is slowly improving but she needs comprehensive rehabilitation. Patient will be discharged to inpatient rehabilitation to continue treatment. Right shoulder pain: MRI revealed a chronic rotator cuff tear with some arch impingement, some degenerative changes. The patient reports a fall involving the right shoulder long time ago. I suspect since the stroke, the patient has had more stiffness of the right shoulder and flareup or osteoarthritis. She can continue physical therapy and rehabilitation and may consider orthopedics consultation. - Pain control as needed. Hypertension - Resume patient's home dose of amlodipine 10 mg daily - monitor BP Atrial fibrillation: Patient reports a history of Afib. No afib documented here. May have paroxysmal afib - Rate controlled - Resume patient's home dose of digoxin 0.125 mg daily - On Eliquis as above Pt Condition on Discharge: Good Discharge Disposition: Rehab Inpatient Discharge Time: > 30 minutes Discharge Instructions DIET: Follow Instructions for: Heart Healthy Diet Activities you can perform: Regular-No Restrictions New Medications: Apixaban (Eliquis) 5 Mg Tab 5 MG PO Q12H, #60 TAB Continued Medications: Amlodipine (Amlodipine) 10 Mg Tab 10 MG PO DAILY for Blood Pressure Management, #30 TAB 0 Refills Biotin (Biotin) 10,000 Mcg Tab.rapdis Digoxin (Digoxin) 0.125 Mg Tab 0.125 MG PO DAILY for Regulate Heart Beat, #30 TAB 0 Refills Glucosamine (Glucosamine) 1,500 Mg Tab 1500 MG PO DAILY for Herbal Supplements, TAB 0 Refills Ibuprofen (Ibuprofen) 600 Mg Tab 600 MG PO Q8H PRN for PAIN, TAB 0 Refills Discontinued Medications: Aspirin (Aspirin) 325 Mg Tab 325 MG PO DAILY, #30 TAB 0 Refills Keara Bowie MD Jul 11, 2017 09:13
--- NOTE | 2017-07-11 09:28 | RADRPT ---
EXAM DATE/TIME: 07/11/2017 08:51 [facility] COMPARISON: No previous studies available for comparison. INDICATIONS : Neck pain radiating to right shoulder. MEDICAL HISTORY : Hypertension. SURGICAL HISTORY : Hysterectomy. Knee replacement. ENCOUNTER: Subsequent ACUITY: 3 day PAIN SCORE: 4/10 LOCATION: Right neck. TECHNIQUE: Multiplanar, multisequence MRI examination of the cervical spine was performed. FINDINGS: VERTEBRAE: Normal vertebral body height. Homogeneous marrow signal. ALIGNMENT: No evidence of subluxation. CORD: Normal configuration and signal. POST FOSSA: The cerebellar tonsils are normal in position. C2-C3: The thecal sac has a normal configuration. There is no evidence of disc herniation or spinal canal s tenosis. The neural foramina are patent bilaterally. C3-C4: Mild uncinate ridging is present with minimal left-sided neural foramen encroachment. C4-C5: Minimal uncinate ridging without significant neuroforaminal encroachment. C5-C6: The thecal sac has a normal configuration. There is no evidence of disc herniation or spinal canal s tenosis. The neural foramina are patent bilaterally. C6-C7: The thecal sac has a normal configuration. There is no evidence of disc herniation or spinal canal s tenosis. The neural foramina are patent bilaterally. C7-T1: The thecal sac has a normal configuration. There is no evidence of disc herniation or spinal canal s tenosis. The neural foramina are patent bilaterally. CONCLUSION: Very minimal uncinate ridging at C4-C5 and C3-C4. I don't see an etiology for the patient's right si ded radiculopathy. Rusty Kim MD FACR on July 11, 2017 at 9:25 Board Certified Radiologist. This report was verified electronically.
--- NOTE | 2017-07-11 09:50 | RADRPT ---
EXAM DATE/TIME: 07/11/2017 08:51 [facility] COMPARISON: No previous studies available for comparison. INDICATIONS : Right shoulder pain. MEDICAL HISTORY : Hypertension. SURGICAL HISTORY : Hysterectomy. Knee replacement. ENCOUNTER: Subsequent ACUITY: 3 day PAIN SCORE: 5/10 LOCATION: Right shoulder. TECHNIQUE: Multiplanar, multisequence MRI examination was performed without contrast. FINDINGS: There is enlarged joint effusion evident in both subacromial and subdeltoid bursa. There is tendinosis of the supraspinatus tendon with full thickness tear just before the insertion. This is associated with degenerative changes at the AC joint and acromial arch spurring. Degenerative changes are seen in the glenoid no superior labral tear. The marrow signal in the humerus is homogeneous and normal. There is no significant adenopathy. CONCLUSION: Chronic rotator cuff tear, probably full thickness without retraction associated with acromial arch impingement and degenerative changes. Degenerative changes superior labrum superior labral tear. Rusty Kim MD FACR on July 11, 2017 at 9:46 Board Certified Radiologist. This report was verified electronically.
[2017-07-11] MEDS: DIGOXIN 0.125 MG TAB PO SCH (10:38)
[2017-07-11 11:03] LABS: ANA SCREEN POS (NEG)
== END 2017-07-11 16:27 | DRG 66 ==
LOC: NEPC 07:20 → NEDA 11:21 → N05A 15:05
PROVIDERS: ADMIT Family Medicine; ATTEND Family Medicine
DX: I63.511 Cerebral infarction due to unspecified occlusion or stenosis of right middle cerebral artery (principal); I48.91 Unspecified atrial fibrillation; I10 Essential (primary) hypertension; G83.21 Monoplegia of upper limb affecting right dominant side; M25.611 Stiffness of right shoulder, not elsewhere classified; M19.90 Unspecified osteoarthritis, unspecified site; M75.101 Unspecified rotator cuff tear or rupture of right shoulder, not specified as traumatic; Z82.3 Family history of stroke; Z84.1 Family history of disorders of kidney and ureter; Z96.652 Presence of left artificial knee joint; Z23 Encounter for immunization
CPT/HCPCS: 70450; 70544; 70548; 70551; 71010; 72141; 73221; 80048; 80061; 80162; 81001; 82607; 82948; 83036; 84425; 84443; 84484; 85025; 85610; 85652; 86038; 86039; 86592; 87086; 90732; 93005; 93306; A9579; J7030